=== PATIENT | female | born 1975 | race Caucasian/White ===

== ENCOUNTER 2024-01-22 20:30 | Inpatient (IN) | payer BC ==
[~2024-01-22] VITALS: Ht 157.5 cm; Wt 68.9 kg
[2024-01-22 20:38] VITALS: BP_SYST 132; PULSE 72; RESP 17; TEMP 97.7; O2SAT 98
[2024-01-22 21:23] LABS: BASOPHILS % (AUTO) 0.3 % (0.0-2.0); EOSINOPHILS # (AUTO) 0.2 K/uL (0.0-0.4); EOSINOPHILS % (AUTO) 3.2 % (0.0-4.0); HEMATOCRIT 35.1 % (36-48); LYMPHOCYTES # (AUTO) 2.1 K/uL (1.0-5.5); LYMPHOCYTES % (AUTO) 29.4 % (20.5-51.5); MEAN CORPUSCULAR HEMOGLOBIN 31 pg (27-31); MEAN CORPUSCULAR HGB CONC 34 % (32-36); MEAN CORPUSCULAR VOLUME 90 fL (79.0-98.0); MONOCYTES # (AUTO) 0.5 K/uL (0.0-1.0); MONOCYTES % (AUTO) 6.8 % (1.7-9.3); NEUTROPHILS # (AUTO) 4.4 K/uL (1.8-7.7); NEUTROPHILS % (AUTO) 60.3 % (40.0-70.0); PLATELET COUNT (AUTO) 322 K/uL (130-430); RED BLOOD CELL COUNT(AUTO) 3.89 MIL/uL (4.2-6.2); RED CELL DISTRIBUTION WIDTH 13.1 % (9.0-15.0); WHITE BLOOD COUNT (AUTO) 7.3 K/uL (4.8-10.8)
[2024-01-22 21:37] LABS: PROTHROMBIN TIME 10.1 SECS (9.5-12.5)
[2024-01-22 21:55] LABS: ALBUMIN 3.1 g/dL (3.4-4.8); CALCIUM 8.7 mg/dL (8.4-11.0); CREATININE 1.66 mg/dL (0.55-1.30); POTASSIUM 4.1 mmol/L (3.5-5.1); TOTAL BILIRUBIN 0.3 mg/dL (0.0-1.0); TOTAL PROTEIN, SERUM 6.8 g/dL (6.4-8.3)
[2024-01-22 21:59] LABS: SERUM HCG (QUALITATIVE) NEGATIVE (NEGATIVE)
[2024-01-22] MEDS ORDERED: MORPHINE 4 MG INJ. 4 MG/ML VIAL IVP ONE (22:15)
[2024-01-22] MEDS ORDERED: ONDANSETRON HCL 4 MG/2 ML VIAL IVP ONE (22:15)
[2024-01-22] MEDS ORDERED: ONDANSETRON HCL 4 MG/2 ML VIAL IVP PRN (22:15)
[2024-01-22] MEDS ORDERED: MORPHINE 2 MG/ML INJ. SYRINGE IVP PRN (22:15)
[2024-01-22] MEDS ORDERED: MORPHINE 4 MG INJ. 4 MG/ML VIAL IVP PRN (22:15)
[2024-01-22 22:24] LABS: BILIRUBIN,DIRECT 0.1 mg/dL (0.0-0.3)
[2024-01-22] MEDS: NACL 0.9% 1,000 ML IV ONE (22:55)
[2024-01-22] MEDS ORDERED: PIPERACILLIN/TAZOBACTAM 3.375 GM/VIAL (ZOSYN) IV ONE (22:56)
[2024-01-22] MEDS: PIPERACILLIN/TAZO 3.375 GM in NS 50 ML IV ONE (23:05)
[2024-01-22 23:13] LABS: BILIRUBIN,URINE NEGATIVE (NEGATIVE); COLOR,URINE YELLOW (YELLOW); GLUCOSE,URINE NEGATIVE (NEGATIVE); KETONES,URINE NEGATIVE (NEGATIVE); LEUKOCYTE ESTERASE ,URINE NEGATIVE (NEGATIVE); NITRITE, URINE NEGATIVE (NEGATIVE); PROTEIN URINE TRACE (NEGATIVE); UROBILINOGEN,URINE 0.2 (0.2-1.0)
[2024-01-22 23:32] LABS: BLOOD, URINE TRACE (NEGATIVE); CLARITY/URINE HAZY (CLEAR)
[2024-01-22 23:36] LABS: BACTERIA,URINE None Seen /HPF (None Seen); WBC,URINE 0-3 /HPF (0-3)
[2024-01-22 23:45] VITALS: BP_SYST 133; PULSE 64; RESP 18; RESP 20; TEMP 98.1; O2SAT 96
[2024-01-23] MEDS: D5/0.45 NS 1,000 ML IV SCH (00:18)
[2024-01-23 08:10] VITALS: BP_SYST 118; PULSE 65; RESP 18; TEMP 97.1; O2SAT 97
[2024-01-23 10:11] LABS: CALCIUM 8.6 mg/dL (8.4-11.0); CREATININE 1.53 mg/dL (0.55-1.30); POTASSIUM 3.9 mmol/L (3.5-5.1)
[2024-01-23] MEDS ORDERED: LORazepam 2 MG/ML VIAL IVP PRN (10:30)
[2024-01-23 10:58] VITALS: O2SAT 96
[2024-01-23 11:56] LABS: HCG,QUAL RESULT NEGATIVE (NEGATIVE)
[2024-01-23 12:01] VITALS: BP_SYST 128; PULSE 66; RESP 17; TEMP 97.7; O2SAT 99
[2024-01-23] MEDS: HYDROmorphone 2 MG/ML VIAL ONE (13:07)
[2024-01-23] MEDS ORDERED: BUPIVACAINE /PF 0.25% 30 ML VIAL INJ ONE (13:15)
[2024-01-23] MEDS ORDERED: MORPHINE 4 MG INJ. 4 MG/ML VIAL IVP PRN ×2 (14:15)
[2024-01-23] MEDS ORDERED: ONDANSETRON HCL 4 MG/2 ML VIAL IVP PRN ×2 (14:15)
[2024-01-23] MEDS ORDERED: ACETAMINOPHEN 325 MG TABLET PO PRN (14:15)
[2024-01-23] MEDS ORDERED: NALOXONE HCL 0.4 MG/ML AMP (NARCAN) IVP PRN (14:15)
[2024-01-23] MEDS ORDERED: HYDROmorphone 1 MG/ML INJ. CARTRIDGE IVP PRN (14:15)
[2024-01-23 16:50] VITALS: BP_SYST 120; PULSE 77; RESP 18; TEMP 98.2; O2SAT 98
[2024-01-23] MEDS: CEFAZOLIN 2 GM IVPB PREMIX 50 ML IV SCH (17:02)
[2024-01-23] MEDS: metroNIDAZOLE 500 mg/NS 100 ML IV SCH (17:03)
[2024-01-23] MEDS: ONDANSETRON HCL 4 MG/2 ML VIAL IVP PRN (18:14)
[2024-01-23] MEDS: METOCLOPRAMIDE HCL 10 MG/2 ML VIAL IVP PRN (19:51)
[2024-01-23 20:00] VITALS: BP_SYST 108; PULSE 87; RESP 16; TEMP 96.2; O2SAT 99
[2024-01-24 00:29] VITALS: BP_SYST 114; PULSE 73; RESP 16; TEMP 98; O2SAT 98
[2024-01-24 04:00] VITALS: RESP 12
[2024-01-24] MEDS: HYDROcodone/ACETAMIN 5-325 MG TAB (NORCO/ VICODIN) PO PRN (05:43)
[2024-01-24 08:28] VITALS: BP_SYST 114; PULSE 97; RESP 19; TEMP 97.9; O2SAT 99
[2024-01-24 08:41] LABS: HEMATOCRIT 32.5 % (36-48); HEMOGLOBIN 10.9 g/dL (12.0-16.0); LYMPHOCYTES % (AUTO) 11.2 % (20.5-51.5); MEAN CORPUSCULAR HEMOGLOBIN 31 pg (27-31); MEAN CORPUSCULAR HGB CONC 34 % (32-36); MEAN CORPUSCULAR VOLUME 91 fL (79.0-98.0); MONOCYTES # (AUTO) 0.5 K/uL (0.0-1.0); NEUTROPHILS # (AUTO) 7.3 K/uL (1.8-7.7); NEUTROPHILS % (AUTO) 82.8 % (40.0-70.0); PLATELET COUNT (AUTO) 314 K/uL (130-430); RED BLOOD CELL COUNT(AUTO) 3.59 MIL/uL (4.2-6.2); RED CELL DISTRIBUTION WIDTH 13.1 % (9.0-15.0); WHITE BLOOD COUNT (AUTO) 8.8 K/uL (4.8-10.8)
[2024-01-24 09:08] LABS: ALBUMIN 2.6 g/dL (3.4-4.8); CALCIUM 8.5 mg/dL (8.4-11.0); CREATININE 1.6 mg/dL (0.55-1.30); PHOSPHORUS 3.5 mg/dL (2.7-4.5); POTASSIUM 4.2 mmol/L (3.5-5.1); TOTAL BILIRUBIN 0.2 mg/dL (0.0-1.0)
[2024-01-24 12:09] VITALS: BP_SYST 112; PULSE 64; RESP 16; TEMP 98.1; O2SAT 100
[2024-01-24 13:52] VITALS: BP_SYST 112; PULSE 64; RESP 16; TEMP 98.1; O2SAT 100
== END 2024-01-24 14:45 | disposition home or self-care (01) | DRG 398 ==
LOC: SED 20:30 → SMU 22:14
PROVIDERS: ADMIT Preventive Medicine Preventive Medicine/Occupational Environmental Medicine; ATTEND Preventive Medicine Preventive Medicine/Occupational Environmental Medicine
PROC: 0DTJ4ZZ Resection of Appendix, Percutaneous Endoscopic Approach (ICD-10-PCS; principal; 2024-01-23 13:15)
DX: K35.80 Unspecified acute appendicitis (principal); N17.9 Acute kidney failure, unspecified
CPT/HCPCS: 36415; 74018; 80048; 80053; 80076; 81000; 81001; 81015; 82150; 83605; 83690; 83735; 84100; 84703; 85025; 85610; 85730; 86886; 86900; 86901; 87040; 87081; 88304; 96365; 99285; C1727; J0330; J0690; J1170; J2405; J2543; J2704; J2765; J3490; J7120